=== PATIENT | female | born 1960 ===

== ENCOUNTER 2020-10-05 18:26 | Emergency (ER) | payer OTHER, SELFPAY ==
[2020-10-05] MEDS ORDERED: charcoal activated SOLUTION 25 GM/120 ML PO ONE (18:37)
[2020-10-05] MEDS ORDERED: ONDANSETRON 4 MG/2 ML INJ IV ONE (18:38)
[2020-10-05] MEDS ORDERED: SODIUM CHLORIDE 0.9% 1000 ML 1,000 ML IV ONE (18:38)
--- NOTE | 2020-10-05 18:46 | Emergency Department Report ---
History of Present Illness - General Chief Complaint: Overdose Stated Complaint: OD Time Seen by Provider: 10/05/20 18:37 Source: patient, family Mode of arrival: Wheelchair Limitations: Language Barrier - History of Present Illness Initial Comments: Chief complaint: Ibuprofen overdose intentional HPI: Polish interpretation provided by family member. Patient did give full history. However she cooperated with hesitation. HPI: This is a 59-year-old female with history of hypertension, diabetes mellitus, cardiac disease, cervical cancer in remission, depression, previous suicide attempt who presents with intentional overdose of ibuprofen. Niece examined the bottle. Niece guesstimates that the number of tablets were 20-25 unknown dose. Patient states that she took this ingested the pills half hour prior to arrival. She told family members that she had stomach upset. After being questioned by family members, she confessed to the intentional overdose. Patient explains that she has been stressed lately. Her recently returned to [place] 2 days ago. She is currently unemployed. She lives with several family members. She takes medication for depression. She moved from [place] 3 years ago. She has moderate achy burning left upper quadrant pain without radiation. Positive nausea. Pain is constant. Pain is not modified with movement or position. Niyary called [facility] prior to arrival. Martin informed MD Complaint: intentional overdose -: minutes(s) (30 minutes prior to arrival) Intent: suicide attempt How Overdose Was Discovered: family/friend present Context: Intentional Overdose: other ("Stress") Associated Symptoms: abdominal pain, other (Nausea) Treatments Prior to Arrival: none (Family transported patient by private auto to the emergency department) - Related Data Allergies Allergy/AdvReac Type Severity Reaction Status Date / Time No Known Allergies Allergy Unverified 10/05/20 18:40 ED Review of Systems ROS: Stated complaint: OD Other details as noted in HPI Comment: All other systems reviewed and negative Constitutional: denies: fever, malaise Respiratory: denies: cough Gastrointestinal: nausea. denies: abdominal pain ED Past Medical Hx - Past Medical History Previous Medical History?: Yes Hx Hypertension: Yes Hx Diabetes: Yes Hx Psychiatric Treatment: Yes (Depression, previous suicide attempt) Additional medical history: "heart problems" - Surgical History Past Surgical History?: Yes Additional Surgical History: , possible uterine surgery - Family History Family history: diabetes, hypertension - Social History Smoking Status: Never Smoker Substance Use Type: None ED Physical Exam - General Limitations: Language Barrier General appearance: alert, in no apparent distress, other (Patient is ambulatory) - Head Head exam: Present: atraumatic, normocephalic - Eye Eye exam: Present: normal appearance - ENT ENT exam: Present: mucous membranes moist - Neck Neck exam: Present: normal inspection, full ROM - Respiratory Respiratory exam: Present: normal lung sounds bilaterally. Absent: respiratory distress, wheezes, rales, rhonchi - Cardiovascular Cardiovascular Exam: Present: regular rate, normal rhythm, normal heart sounds. Absent: systolic murmur, diastolic murmur, rubs, gallop - GI/Abdominal GI/Abdominal exam: Present: soft, normal bowel sounds. Absent: distended, tenderness, guarding, rebound - Extremities Exam Extremities exam: Present: normal inspection - Back Exam Back exam: Present: normal inspection - Neurological Exam Neurological exam: Present: alert, oriented X3 - Psychiatric Psychiatric exam: Present: depressed, flat affect, suicidal ideation - Skin Skin exam: Present: warm, dry, intact, normal color. Absent: rash ED Course Vital Signs 10/05/20 10/05/20 10/05/20 18:45 19:01 19:15 Temperature Pulse Rate 77 89 76 Respiratory 21 18 17 Rate Blood Pressure 138/66 117/61 117/61 Blood Pressure [Left] O2 Sat by Pulse 95 99 98 Oximetry 10/05/20 10/05/20 10/05/20 19:30 19:31 19:45 Temperature 97.7 F Pulse Rate 80 67 67 Respiratory 18 15 18 Rate Blood Pressure 119/63 119/63 Blood Pressure 119/63 [Left] O2 Sat by Pulse 96 97 99 Oximetry 10/05/20 10/05/20 10/05/20 20:01 20:15 20:31 Temperature Pulse Rate 69 70 67 Respiratory 16 16 14 Rate Blood Pressure 118/53 118/53 112/51 Blood Pressure [Left] O2 Sat by Pulse 97 97 99 Oximetry 10/05/20 10/05/20 10/05/20 20:45 21:01 21:15 Temperature Pulse Rate 70 73 76 Respiratory 15 15 13 Rate Blood Pressure 112/51 119/55 119/55 Blood Pressure [Left] O2 Sat by Pulse 99 97 98 Oximetry 10/05/20 10/05/20 10/05/20 21:31 21:45 22:01 Temperature Pulse Rate 70 70 65 Respiratory 15 17 15 Rate Blood Pressure 129/53 129/53 116/55 Blood Pressure [Left] O2 Sat by Pulse 99 100 98 Oximetry 10/05/20 22:15 Temperature Pulse Rate 65 Respiratory 15 Rate Blood Pressure 116/55 Blood Pressure [Left] O2 Sat by Pulse 98 Oximetry ED Medical Decision Making - Lab Data Result diagrams: 10/05/20 18:40 10/05/20 18:40 Laboratory Results - last 24 hr 10/05/20 10/05/20 10/05/20 18:40 18:40 18:40 WBC 7.0 RBC 4.55 Hgb 13.6 Hct 39.3 MCV 87 MCH 30 MCHC 35 H RDW 13.2 Plt Count 294 Lymph % (Auto) 40.4 H [place] % (Auto) 8.1 H Eos % (Auto) 1.4 Baso % (Auto) 0.5 Lymph # (Auto) 2.8 [place] # (Auto) 0.6 Eos # (Auto) 0.1 Baso # (Auto) 0.0 Seg Neutrophils % 49.6 Seg Neutrophils # 3.5 Sodium 139 Potassium 4.0 Chloride 101.2 Carbon Dioxide 27 Anion Gap 15 BUN 13 Creatinine 0.7 Estimated GFR > 60 BUN/Creatinine Ratio 19 Glucose 139 H Calcium 8.9 Total Bilirubin 0.30 AST 14 ALT 9 Alkaline Phosphatase 88 Total Protein 7.2 Albumin 4.0 Albumin/Globulin Ratio 1.3 Urine Color Urine Turbidity Urine pH Ur Specific [place] Urine Protein Urine Glucose (UA) Urine Ketones Urine Blood Urine Nitrite Urine Bilirubin Urine Urobilinogen Ur Leukocyte Esterase Urine WBC (Auto) Urine RBC (Auto) U Epithel Cells (Auto) Salicylates < 0.3 L Urine Opiates Screen Urine Methadone Screen Acetaminophen Ur Barbiturates Screen Ur Phencyclidine Scrn Ur Amphetamines Screen U Benzodiazepines Scrn Urine Cocaine Screen U Marijuana (THC) Screen Drugs of Abuse Note Plasma/Serum Alcohol 10/05/20 10/05/20 10/05/20 18:40 18:40 21:43 WBC RBC Hgb Hct MCV MCH MCHC RDW Plt Count Lymph % (Auto) [place] % (Auto) Eos % (Auto) Baso % (Auto) Lymph # (Auto) [place] # (Auto) Eos # (Auto) Baso # (Auto) Seg Neutrophils % Seg Neutrophils # Sodium Potassium Chloride Carbon Dioxide Anion Gap BUN Creatinine Estimated GFR BUN/Creatinine Ratio Glucose Calcium Total Bilirubin AST ALT Alkaline Phosphatase Total Protein Albumin Albumin/Globulin Ratio Urine Color Urine Turbidity Urine pH Ur Specific [place] Urine Protein Urine Glucose (UA) Urine Ketones Urine Blood Urine Nitrite Urine Bilirubin Urine Urobilinogen Ur Leukocyte Esterase Urine WBC (Auto) Urine RBC (Auto) U Epithel Cells (Auto) Salicylates < 0.3 L Urine Opiates Screen Urine Methadone Screen Acetaminophen 5.0 L Ur Barbiturates Screen Ur Phencyclidine Scrn Ur Amphetamines Screen U Benzodiazepines Scrn Urine Cocaine Screen U Marijuana (THC) Screen Drugs of Abuse Note Plasma/Serum Alcohol < 0.01 10/05/20 10/05/20 10/05/20 21:43 Unknown Unknown WBC RBC Hgb Hct MCV MCH MCHC RDW Plt Count Lymph % (Auto) [place] % (Auto) Eos % (Auto) Baso % (Auto) Lymph # (Auto) [place] # (Auto) Eos # (Auto) Baso # (Auto) Seg Neutrophils % Seg Neutrophils # Sodium Potassium Chloride Carbon Dioxide Anion Gap BUN Creatinine Estimated GFR BUN/Creatinine Ratio Glucose Calcium Total Bilirubin AST ALT Alkaline Phosphatase Total Protein Albumin Albumin/Globulin Ratio Urine Color Yellow Urine Turbidity Clear Urine pH 8.0 H Ur Specific [place] 1.012 Urine Protein <15 mg/dl Urine Glucose (UA) Neg Urine Ketones Neg Urine Blood Neg Urine Nitrite Neg Urine Bilirubin Neg Urine Urobilinogen < 2.0 Ur Leukocyte Esterase Lg Urine WBC (Auto) 20.0 H Urine RBC (Auto) 1.0 U Epithel Cells (Auto) 5.0 Salicylates Urine Opiates Screen Negative Urine Methadone Screen Negative Acetaminophen 5.0 L Ur Barbiturates Screen Negative Ur Phencyclidine Scrn Negative Ur Amphetamines Screen Negative U Benzodiazepines Scrn Negative Urine Cocaine Screen Negative U Marijuana (THC) Screen Negative Drugs of Abuse Note Disclamer Plasma/Serum Alcohol - EKG Data -: EKG Interpreted by Me EKG shows normal: sinus rhythm, axis, intervals, QRS complexes, ST-T waves Rate: normal - EKG Data Interpretation: normal EKG 10/05/20 18:47 EKG obtained 1837 EKG interpreted by me Normal sinus rhythm normal rate normal axis normal intervals no ST elevation no ST-T signs of ischemia normal EKG rate 75 bpm - Medical Decision Making 1. Intentional overdose ibuprofen: Patient immediately given activated charcoal with sorbitol upon arrival. Poison control devops consultant recommended repeat acetaminophen and salicylate level at 2130. Repeat salicylate acetaminophen levels within normal limits actually negative. Patient is medically clear for psychiatric care. She does not have evidence of lethal toxic ingestion. At this time patient is medically clear for psychiatric care. Patient has been observed for the full 4 hours as recommended by [place] Poison control. CBC chemistry urinalysis urine toxicology all within normal limits. Patient does not have symptoms of UTI. She does not require antibiotic treatment for contaminated urine sample. 2. Acute depression with history of previous suicide attempt. 1013 form completed. ED hold order initiated. 3 hypertensive urgency: P.o. medication ordered. Patient did not have list of medications available. She was unable to recall the name of her blood pressure medication. Critical Care Time: Yes Critical care time in (mins) excluding proc time.: 40 Critical care attestation.: If time is entered above; I have spent that time in minutes in the direct care of this critically ill patient, excluding procedure time. 40 minutes of critical care time excluding procedures were used in the care of the patient. I came immediately to the bedside upon patient's arrival to treatment room. I discussed treatment plan with the nursing team members. I reviewed electronic record. I kept the family members informed. Patient required multiple interventions and reassessment. ED Disposition Clinical Impression: Intentional ibuprofen overdose, Suicide attempt by drug overdose, Acute depression Disposition: DC/TX-70 ANOTHER TYPE HLTHCARE Is pt being admited?: No Does the pt Need Aspirin: No Condition: Stable
[2020-10-05 18:54] LABS: Basophils % (Auto) 0.5 % (0.0-1.8); Eosinophils # (Auto) 0.1 K/mm3 (0.0-0.4); Eosinophils % (Auto) 1.4 % (0.0-4.3); Hematocrit 39.3 % (30.3-42.9); Hemoglobin 13.6 gm/dl (10.1-14.3); Lymphocytes # (Auto) 2.8 K/mm3 (1.2-5.4); Lymphocytes % (Auto) 40.4 % (13.4-35.0); Mean Corpuscular HGB Conc 35 % (30-34); Mean Corpuscular Volume 87 fl (79-97); Monocytes # (Auto) 0.6 K/mm3 (0.0-0.8); Monocytes % (Auto) 8.1 % (0.0-7.3); Platelet Count 294 K/mm3 (140-440); Red Blood Count 4.55 M/mm3 (3.65-5.03); Red Cell Distribution Width 13.2 % (13.2-15.2)
[2020-10-05 19:12] LABS: Alanine Aminotransferase 9 units/L (7-56); Blood Urea Nitrogen 13 mg/dL (7-17); Calcium 8.9 mg/dL (8.4-10.2); Hemolysis Index 8
[2020-10-05 19:16] LABS: BUN/Creatinine Ratio 19
[2020-10-05 20:07] LABS: Bilirubin,Urine NEG (Negative); Blood,Urine NEG (Negative); Color,Urine Yellow (Yellow); Protein,Urine <15 mg/dL mg/dL (Negative); Urobilinogen,Urine < 2.0 mg/dL (<2.0)
[2020-10-05 20:12] LABS: Amphetamine Screen,Urine Negative; Benzodiazepines Screen,Urine Negative; Cannabinoid Screen,Urine Negative; Cocaine Screen,Urine Negative; Methadone Screen,Urine Negative; Opiate Screen,Urine Negative
--- NOTE | 2020-10-06 08:14 | Consultation ---
History of Present Illness - Reason for Consult Consult date: 10/06/20 Reason for consult: overdose - History of Present Psychiatric Illness Per ED Note: HPI: This is a 59-year-old female with history of hypertension, diabetes mellitus, cardiac disease, cervical cancer in remission, depression, previous suicide attempt who presents with intentional overdose of ibuprofen. Niece examined the bottle. Niece guesstimates that the number of tablets were 20-25 unknown dose. Patient states that she took this ingested the pills half hour prior to arrival. She told family members that she had stomach upset. After being questioned by family members, she confessed to the intentional overdose. Patient explains that she has been stressed lately. Her recently returned to [place] 2 days ago. She is currently unemployed. She lives with several family members. She takes medication for depression. Barbra Pearce is a 59y/o female patient whom I evaluated today. A staff member was used for translation. The patient was lying down. She is a/o x 3. She is calm and cooperative. The patient says she took the medication on accident, she then says she took it because she was depressed and under a lot of stress. The patient also verbalizes hearing noises and voices of people talking to her. She denies the voices telling her anything harmful. The patient denies seeing a psychiatrist. She says she lasts saw a doctor in [place] and he put her on klonopin for anxiety. The patient denies any illicit drug use, alcohol or nicotine. The patient verbalizes not sleeping well. PAST PSYCHIATRIC HISTORY Diagnoses: Anxiety Suicide attempts or Self-harm behavior: Denies Prior psychiatric hospitalizations: Denies Substance Abuse history: Denies Previous psychiatric medications tried: Klonopin Outpatient treatment: Denies PAST MEDICAL HISTORY: HTN, DM, Cardiac disease, cervical cancer Family Psychiatric History: None reported or documented SOCIAL HISTORY Marital Status: Living Arrangements: with granddaughter Employment Status: Unemployed Access to guns/weapons: denies Education: high school diploma History of Abuse: Denies Legal History: Denies REVIEW OF SYSTEMS Constitutional: Negative for weight loss ENT: Negative for stridor Respiratory: Negative for cough or hemoptysis All other systems reviewed and are negative MENTAL STATUS EXAMINATION General Appearance and Behavior: Age appropriate, good hygiene, not wearing appropriate clothes, good eye contact, cooperative polite with questioning. Cooperation: Participating/engaged Psychomotor Behavior: Psychomotor normal Mood: Depressed Affect and affective range: Restricted Thought Process: Circumstantial, Illogical, Thought Content: hallucinations, hopelessness Speech: Normal tone and pace Intellectual Functioning: Average Suicidal Ideation: Denies, but admits to taking pills due to stress and depression Homicidal Ideation: Denies HI Hallucinations: Auditory Delusions: None elicited Impulse Control: Impaired Insight and Judgment: Limited insight and judgment Memory: Normal Attention: Divided attention impaired Orientation: Alert, oriented, Assessment and Plan (1) Major Depressive Disorder, Severe with Psychotic Features Current Visit: Yes Status: Acute Treatment Plan 1013 Start Zoloft 25mg po daily Start Abilify 5mg po daily Start Trazodone 50mg po qhs Sitter: Defer to primary Medical: Per primary Disposition: Recommend acute psychiatric inpatient treatment Will follow. Thank you. Case staffed with Dr. Greenwood. Medications and Allergies Allergies Allergy/AdvReac Type Severity Reaction Status Date / Time No Known Allergies Allergy Unverified 10/05/20 18:40 Mental Status Exam - Vital signs Last Vital Signs Temp 97.9 F 10/06/20 08:01 Pulse 68 10/06/20 08:01 Resp 18 10/06/20 08:01 BP 142/61 10/06/20 08:01 Pulse Ox 100 10/06/20 08:01 Results Result Diagrams: 10/05/20 18:40 10/05/20 18:40 Abnormal lab results 10/05/20 10/05/20 10/05/20 Range/Units 18:40 18:40 18:40 MCHC 35 H (30-34) % Lymph % (Auto) 40.4 H (13.4-35.0) % [place] % (Auto) 8.1 H (0.0-7.3) % Glucose 139 H (65-100) mg/dL Urine pH (5.0-7.0) Urine WBC (Auto) (0.0-6.0) /HPF Salicylates < 0.3 L (2.8-20.0) mg/dL Acetaminophen (10.0-30.0) ug/mL 10/05/20 10/05/20 10/05/20 Range/Units 18:40 21:43 21:43 MCHC (30-34) % Lymph % (Auto) (13.4-35.0) % [place] % (Auto) (0.0-7.3) % Glucose (65-100) mg/dL Urine pH (5.0-7.0) Urine WBC (Auto) (0.0-6.0) /HPF Salicylates < 0.3 L (2.8-20.0) mg/dL Acetaminophen 5.0 L 5.0 L (10.0-30.0) ug/mL 05/24/ Range/Units Unknown MCHC (30-34) % Lymph % (Auto) (13.4-35.0) % [place] % (Auto) (0.0-7.3) % Glucose (65-100) mg/dL Urine pH 8.0 H (5.0-7.0) Urine WBC (Auto) 20.0 H (0.0-6.0) /HPF Salicylates (2.8-20.0) mg/dL Acetaminophen (10.0-30.0) ug/mL All other labs normal.
[2020-10-06] MEDS ORDERED: ARIPiprazole 5 MG TAB PO SCH (10:00)
[2020-10-06] MEDS ORDERED: SERTRALINE 25 MG TAB PO SCH (10:00)
--- NOTE | 2020-10-06 10:20 | Event Note ---
Date: 10/06/20 Patient lying in her bed in the position. Patient is very depressed. Vital signs stable Labs reviewed and showed UTI. Patient started on Macrobid 100 mg p.o. twice daily for 7 days. Waiting for placement.
--- NOTE | 2020-10-06 10:41 | Electrocardiograph Report ---
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
[2020-10-06] MEDS ORDERED: NITROFURANTOIN MONOHYD/M-CRYST 100 MG CAP PO SCH (11:00)
[2020-10-06 15:25] VITALS: BP 153/64
[2020-10-06] MEDS ORDERED: traZODone 50 MG TAB PO SCH (22:00)
== END 2020-10-06 18:03 | disposition other institution (70) ==
LOC: ED 18:26
DX: T39.312A Poisoning by propionic acid derivatives, intentional self-harm, initial encounter (principal); F32.9 Major depressive disorder, single episode, unspecified; Z20.822 Contact with and (suspected) exposure to COVID-19; I10 Essential (primary) hypertension; E11.9 Type 2 diabetes mellitus without complications; Z98.890 Other specified postprocedural states; Z79.899 Other long term (current) drug therapy; Y92.89 Other specified places as the place of occurrence of the external cause
CPT/HCPCS: 36415; 80053; 80307; 81001; 82962; 85025; 87086; 93005; 96361; 96374; 99291; J2405; J7030; U0003; 80320; G0480